=== PATIENT | female | born 1960 | race Caucasian/White ===

== ENCOUNTER 2018-02-01 09:30 | Inpatient (IN) | payer BC ==
[~2018-02-01] VITALS: Ht 162.6 cm; Wt 113.9 kg
[~2018-02-01 09:30] MED LIST: ASCORBIC ACID500 MG PO; FEOSOL325 MG PO; MECLIZINE HCL12.5 MG PO; PROTONIX40 MG/ML PO; TRIAMTERENE-HC1 EAC2 PO
[2018-02-01] MEDS ORDERED: ASPIRIN 81 MG CHEW TAB PO ONE (10:00)
[2018-02-01 10:08] LABS: BASOPHILS # (AUTO) 0.1 (0.0-0.1); BASOPHILS % 0.6 % (0.0-1.0); EOSINOPHILS # (AUTO) 0.1 (0.0-0.4); EOSINOPHILS % 1.2 % (0.0-6.0); HEMATOCRIT 35.1 % (34.2-44.1); HEMOGLOBIN 9.9 g/dL (12.0-16.0); LYMPHOCYTES # (AUTO) 1.3 (1.0-3.2); LYMPHOCYTES % 15.5 % (18.0-39.1); MEAN CORPUSCULAR HEMOGLOBIN 20.3 pg (28-32); MEAN CORPUSCULAR HGB CONC 28.2 g/dL (31-35); MEAN CORPUSCULAR VOLUME 72.1 fL (81-99); MONOCYTES # (AUTO) 0.5 (0.2-0.8); MONOCYTES % 5.5 % (4.4-11.3); NEUTROPHILS # (AUTO) 6.6 (2.1-6.9); NEUTROPHILS % 76.7 % (38.7-80.0); PLATELET COUNT 365 x10e3/uL (140-360); RED BLOOD COUNT 4.87 x10e6/uL (3.6-5.1); RED CELL DISTRIBUTION WIDTH 17.5 % (11.7-14.4)
[2018-02-01 10:26] LABS: ALANINE AMINOTRANSFERASE 26 IU/L (0-55); ALBUMIN 3.7 g/dL (3.5-5.0); ALBUMIN/GLOBULIN RATIO 0.9 (0.8-2.0); ALKALINE PHOSPHATASE 93 IU/L (40-150); ANION GAP 15.9 mmol/L (8-16); BLOOD UREA NITROGEN 11 mg/dL (7-26); BUN/CREATININE RATIO 14 (6-25); CALCIUM 9.2 mg/dL (8.4-10.2); CARBON DIOXIDE 24 mmol/L (22-29); CHLORIDE 103 mmol/L (98-107); CREATINE KINASE 83 IU/L (29-168); CREATININE, SERUM 0.78 mg/dL (0.57-1.11); EST GLOMERULAR FILTRATION RATE > 60 ML/MIN (60-); GLUCOSE 105 mg/dL (74-118); POTASSIUM 3.9 mmol/L (3.5-5.1); SODIUM 139 mmol/L (136-145)
--- NOTE | 2018-02-01 10:30 | Diagnostic Imaging Report ---
PROCEDURE: X-RAY CHEST, TWO VIEWS COMPARISON: None. INDICATIONS: CHEST, JAW, UPPER BACK PAIN FINDINGS: The lungs are well-inflated. No focal airspace consolidation, pleural effusion, or pneumothorax. Convexity along the lower right and left paravertebral regions of the mediastinum likely reflects a hiatal hernia. Otherwise normal cardiomediastinal contour. No acute osseous abnormality. CONCLUSION: No acute cardiopulmonary abnormality. Probable hiatal hernia. Dictated by: Eligio Henson M.D. on 02/01/2018 at 10:39 Electronically approved by: Eligio Henson M.D. on 02/01/2018 at 10:39
[2018-02-01] MEDS ORDERED: NITROGLYCERIN 2% OINT 1 GM PKT TOP ONE (12:00)
[2018-02-01] MEDS ORDERED: HEPARIN 25,000U/0.45% NS 250ML 900 UNIT in SODIUM CHLORIDE 0.9% 250ML 0 ML IV SCH (12:15)
[2018-02-01] MEDS ORDERED: HEPARIN SOD (PORCINE) 5,000 UNIT/ML VIAL IV ONE (12:15)
[2018-02-01 12:17] LABS: INR 0.92; PARTIAL THROMBOPLASTIN TIME 25.8 seconds (23.8-35.5); PROTHROMBIN TIME 13.2 seconds (11.9-14.5)
[2018-02-01] MEDS ORDERED: HEPARIN 25,000U/0.45% NS 250ML 250 ML ONE (12:26)
[2018-02-01] MEDS ORDERED: MORPHINE SULFATE 2 MG/ML SYR IV STA (13:37)
[2018-02-01] MEDS ORDERED: ONDANSETRON HCL INJ 2 MG/ML VIAL IV STA (13:37)
[2018-02-01] MEDS ORDERED: SODIUM CHLORIDE 0.9% 1000ML 1,000 ML IV SCH ×2 (13:45→16:45)
[2018-02-01] MEDS ORDERED: ACETAMINOPHEN 325 MG TAB PO ONE (13:45)
[2018-02-01] MEDS ORDERED: NITROGLYCERIN 0.4 MG SUBL SL PRN (13:45)
[2018-02-01 13:57] LABS: ANISOCYTOSIS MODERATE; HYPOCHROMASIA MODERATE; PLATELET ESTIMATE ADEQUATE; PLATELET MORPHOLOGY COMMENT NORMAL; POIKILOCYTOSIS SLIGHT; RBC MORPHOLOGY COMMENT ABNORMAL
[2018-02-01] MEDS ORDERED: SODIUM CHLORIDE 0.9% 1000ML 1,000 ML IV ONE (16:30)
[2018-02-01] MEDS: NITROGLYCERIN 2% OINT 1 GM PKT TOP SCH (16:52)
[2018-02-01] MEDS: PANTOPRAZOLE 40 MG 10ML VIAL IV SCH (17:00)
[2018-02-01] MEDS: SODIUM CHLORIDE 0.9% 1000ML 1,000 ML IV SCH (19:00)
[2018-02-01 19:12] VITALS: BP 110/60
[2018-02-01 19:14] VITALS: BP 110/60
[2018-02-01 20:00] VITALS: BP 110/60
[2018-02-01 20:21] LABS: INR 0.92; PROTHROMBIN TIME 13.2 seconds (11.9-14.5)
[2018-02-01] MEDS: MORPHINE SULFATE 2 MG/ML SYR IV PRN (21:04)
[2018-02-01] MEDS: ONDANSETRON HCL INJ 2 MG/ML VIAL IV PRN (21:05)
[2018-02-01] MEDS: SIMVASTATIN 40 MG TAB PO SCH (21:31)
[2018-02-01 22:13] VITALS: BP 113/56
--- NOTE | 2018-02-01 22:19 | Diagnostic Imaging Report ---
EXAM: CT Chest WITH contrast 02/01/2018 7:52 PM INDICATION: Evaluation for dissection COMPARISON: None TECHNIQUE: Chest was scanned utilizing a multidetector helical scanner from the lung apex through the level of the adrenal glands with and without administration of IV contrast. Coronal and sagittal reformations were obtained. Dissection protocol was performed. 3-D reformatted images were submitted for interpretation of volume rendering. IV CONTRAST: 100 and mL of Isovue-370 RADIATION DOSE: Total DLP: 1199.19 mGy*cm Estimated effective dose: (DLP x 0.014 x size factor) mSv COMPLICATIONS: None FINDINGS: LINES/ TUBES: None. LUNGS AND AIRWAYS: The lungs are unremarkable. Airways are normal. PLEURA: The pleural spaces are clear. HEART AND MEDIASTINUM: Large left thyroid nodule with central calcification and peripheral enhancement measuring 3 cm in diameter in the inferior pole of the left thyroid. No mediastinal, hilar or axillary lymphadenopathy. The heart is normal in size.. There is no pericardial effusion. There are mild atherosclerotic calcifications in the aorta and coronary arteries. The abdominal aorta is normal in course, caliber, and contour. There is no acute aortic pathology. Scutcher Tender dimensions of the thoracic aorta are as follows: 2.7 cm at the aortic annulus 3.1 cm at the sinuses of Valsalva (the sinotubular junction is preserved) 3.2 cm at the mid ascending aorta 2.8 cm at the distal ascending aorta 2.3 cm at the mid transverse arch 2.4 cm at the proximal descending thoracic aorta 2.1 cm at the diaphragmatic hiatus. UPPER ABDOMEN: Large sliding hiatal hernia with organoaxial rotation within the mediastinum. BONES: The visualized bony thorax is within normal limits. SOFT TISSUES: Unremarkable. IMPRESSION: 1. No evidence of thoracic aortic aneurysm or dissection. 2. Large sliding hiatal hernia with organoaxial rotation within the mediastinum. These findings can be seen on patients with gastric volvulus. However, no evidence of perigastric fat stranding present. Scratch that 3. Diffuse hepatic steatosis. 4. Left thyroid enhancing and partially calcified nodule Signed by: Dr. Abundio Begum M.D. on 02/01/2018 10:16 PM
[2018-02-01 22:30] VITALS: BP 113/56
--- NOTE | 2018-02-01 23:16 | Consultation ---
DATE OF CONSULTATION: February 01, 2018 CARDIOLOGY CONSULTATION REQUESTING PHYSICIAN: Dr. Bonilla REASON FOR CONSULTATION: Chest pain. HISTORY OF PRESENT ILLNESS: This is a 57-year-old woman with history of borderline hyperlipidemia, as well as Meniere's, who presents with complaint of chest pain. The patient denied any history of heart disease. She states she has been feeling more fatigued than usual for the last few weeks and noted lower extremity swelling on Thursday. On Thursday, she went to her primary care provider due to these complaints and was noted to be hypertensive to 160/100. She was started on an unknown antihypertensive medication and was doing well until this morning, when she developed central chest pressure radiating to the back and bilateral jaw, right worse than left. She described the pain as 6/10 in severity at onset. This was associated with shortness of breath, nausea, and diaphoresis. The pain comes intermittently lasting approximately 3-4 minutes at a time. She went into work, but eventually the pain became so severe. EMS was called. The patient presented to [facility] ER for further evaluation. In the ER, she was given a nitroglycerin patch with some improvement in her symptoms. REVIEW OF SYSTEMS: Negative except as per HPI. PAST MEDICAL HISTORY: 1. Borderline hypertension. 2. Meniere's. PAST SURGICAL HISTORY: Endometrial ablation. ALLERGIES: CODEINE. MEDICATIONS: Please see medication list. SOCIAL HISTORY: Denies tobacco or illicit drugs, but does drink alcohol socially. PHYSICAL EXAM VITAL SIGNS: Temperature 97.9 degrees, pulse 66, respiratory rate 18, blood pressure 102/67, oxygen saturation 98% on 2 L nasal cannula. GENERAL: A well-developed, well-nourished woman, obese, no acute distress. HEENT: Normocephalic, atraumatic. Pupils are equal. No scleral icterus. NECK: Supple. No thyromegaly or cervical lymphadenopathy. No carotid bruits. LUNGS: Clear to auscultation bilaterally. No wheezes or crackles. CARDIOVASCULAR: Normal rate, regular rhythm. Soft 1/6 systolic murmur. It was noted at the upper sternal border. Normal S1, S2. ABDOMEN: Soft, nontender. EXTREMITIES: No edema. NEURO: Nonfocal exam. LABS: WBC 8.54, hemoglobin 9.9, hematocrit 35.1, platelets 365,000. Sodium 139, potassium 3.9, chloride 103, CO2 24, BUN 11, creatinine 0.78. Troponin less than 0.001. BNP 22. D-dimer 0.88. EKG, normal sinus rhythm, right bundle-branch block. IMPRESSIONS 1. Chest pain. 2. Hyperlipidemia. RECOMMENDATIONS: Trend cardiac enzymes to rule out myocardial infarction. Obtain echocardiogram. Given radiation to the back, will obtain CTA of the chest to evaluate for dissection, as well as pulmonary embolism. If patient rules out for myocardial infarction, we will proceed with nuclear stress test in the morning. Otherwise, patient will need further evaluation with cardiac catheterization. Check lipid panel in a.m. Thank you for this consult. We will continue to follow. Job#: [id number] CQ
[2018-02-02] MEDS: NITROGLYCERIN 2% OINT 1 GM PKT TOP SCH ×4 (00:55→18:00)
[2018-02-02 04:00] VITALS: BP 108/53
[2018-02-02] MEDS ORDERED: SODIUM CHLORIDE 0.9% 100 ML 100 ML ONE (04:00)
[2018-02-02] MEDS ORDERED: IOPAMIDOL 370 MG/ML 200 ML INFUS..BTL INJ ONE (04:00)
[2018-02-02 04:17] LABS: CREATINE KINASE 73 IU/L (29-168)
[2018-02-02] MEDS: SODIUM CHLORIDE 0.9% 1000ML 1,000 ML IV SCH ×2 (05:00→14:00)
[2018-02-02] MEDS: MORPHINE SULFATE 2 MG/ML SYR IV PRN ×3 (06:20→22:53)
[2018-02-02] MEDS: ONDANSETRON HCL INJ 2 MG/ML VIAL IV PRN ×3 (06:20→22:53)
[2018-02-02 06:47] LABS: BASOPHILS % 0.4 % (0.0-1.0); EOSINOPHILS # (AUTO) 0.1 (0.0-0.4); EOSINOPHILS % 1.5 % (0.0-6.0); HEMATOCRIT 28.6 % (34.2-44.1); HEMOGLOBIN 7.9 g/dL (12.0-16.0); LYMPHOCYTES # (AUTO) 1.3 (1.0-3.2); LYMPHOCYTES % 25.5 % (18.0-39.1); MEAN CORPUSCULAR HEMOGLOBIN 20.4 pg (28-32); MEAN CORPUSCULAR HGB CONC 27.6 g/dL (31-35); MEAN CORPUSCULAR VOLUME 73.9 fL (81-99); MONOCYTES # (AUTO) 0.4 (0.2-0.8); MONOCYTES % 8.2 % (4.4-11.3); NEUTROPHILS # (AUTO) 3.4 (2.1-6.9); NEUTROPHILS % 64.2 % (38.7-80.0); PLATELET COUNT 302 x10e3/uL (140-360); RED BLOOD COUNT 3.87 x10e6/uL (3.6-5.1); RED CELL DISTRIBUTION WIDTH 17.7 % (11.7-14.4)
[2018-02-02 06:59] LABS: ANION GAP 13.1 mmol/L (8-16); BLOOD UREA NITROGEN 12 mg/dL (7-26); BUN/CREATININE RATIO 16 (6-25); CALCIUM 8.4 mg/dL (8.4-10.2); CARBON DIOXIDE 23 mmol/L (22-29); CHLORIDE 107 mmol/L (98-107); CHOL/HDL RATIO 3.7 (3.0-3.6); CHOLESTEROL 167 MD/DL (0-199); CREATININE, SERUM 0.74 mg/dL (0.57-1.11); EST GLOMERULAR FILTRATION RATE > 60 ML/MIN (60-); GLUCOSE 117 mg/dL (74-118); HDL CHOLESTEROL 45 MG/DL (40-60); LDL CHOLESTEROL 94 MG/DL (60-130); POTASSIUM 4.1 mmol/L (3.5-5.1); SODIUM 139 mmol/L (136-145); TRIGLYCERIDES 140 MG/DL (0-149)
[2018-02-02 07:08] LABS: MAGNESIUM 2.1 MG/DL (1.3-2.1); PHOSPHORUS 3.9 MG/DL (2.3-4.7)
[2018-02-02 08:10] VITALS: BP 98/47
[2018-02-02] MEDS ORDERED: LISINOPRIL 10 MG TAB PO SCH (09:00)
[2018-02-02] MEDS: HEPARIN 25,000U/0.45% NS 250ML 900 UNIT in SODIUM CHLORIDE 0.9% 250ML 0 ML IV SCH (09:15)
[2018-02-02 10:00] VITALS: BP 98/47
[2018-02-02] MEDS: PANTOPRAZOLE 40 MG 10ML VIAL IV SCH ×2 (10:02→17:30)
[2018-02-02 10:06] LABS: ANISOCYTOSIS SLIGHT; HYPOCHROMASIA SLIGHT; MICROCYTOSIS SLIGHT; PLATELET ESTIMATE ADEQUATE; PLATELET MORPHOLOGY COMMENT NORMAL; RBC MORPHOLOGY COMMENT NORMAL
[2018-02-02 11:07] LABS: CREATINE KINASE 70 IU/L (29-168)
[2018-02-02] MEDS ORDERED: REGADENOSON 0.4 MG/5 ML SYR IV ONE (11:45)
[2018-02-02] MEDS ORDERED: SODIUM CHLORIDE 0.9% 250ML 250 ML IV ONE (12:45)
--- NOTE | 2018-02-02 12:48 | Progress Note ---
DATE: February 02, 2018 CARDIOLOGY PROGRESS NOTE: SUBJECTIVE: Ms. Avendaño had some minimal pain overnight. OBJECTIVE: VITAL SIGNS: Afebrile. Heart rate 80. Blood pressure 98/47. CARDIOVASCULAR: Regular rhythm. No murmurs or gallops. LUNGS: Clear to auscultation bilaterally. Hemoglobin is 7.9 with iron deficiency anemia. Serum creatinine is normal. Cardiac enzymes are negative. Lexiscan nuclear stress test was performed. The patient had marked ST elevation in the inferior leads with reciprocal changes consistent with myocardial injury. ASSESSMENT: 1. Symptomatic anemia. 2. Chest pain. PLAN: We will review imaging on her nuclear stress test. However, her EKG changes are consistent with either coronary spasm or significant right coronary artery stenosis. She will require an anemia workup for her severe anemia prior to any undertaking coronary angiography. GI consultation is recommended with CT scan of the abdomen and pelvis. I thank Dr. Bonilla for this consultation. Job#: [id number] TIANNA
[2018-02-02] MEDS: ASPIRIN 81 MG ENTERIC COATED PO SCH (13:28)
[2018-02-02] MEDS: LISINOPRIL 20 MG TAB PO SCH (13:28)
[2018-02-02] MEDS ORDERED: FUROSEMIDE INJ 10 MG/ML 2 ML VIAL IV NR (14:00)
--- OUTSIDE RECORDS SUMMARY | 2018-02-02 14:18 | XMS REPORT | Encounter Summary ---
Author Organization Unknown Address [address] [place] [address] Phone [phone] Care Team Providers Care Shochet Name Role Phone Aravind Fuentes MD 3 [phone] Reason for Visit Medical Complaint Instructions 1. Upper respiratory infection upper respiratory infection (cold): care instructions benzonatate 200 mg capsule 2. Acute pharyngitis sore throat: care instructions rapid strep group A, throat 3. Exposure to streptococcal pharyngitis amoxicillin 875 mg tablet 4. Otalgia earache: care instructions Discussion Note Pt is in NAD; Verbalizes understanding of all instructions with no questions at this time. Plan of Care Patient Instructions Take fluticasone as needed for congestion. Bayard one spray in each nostril twice a day. Take a warm, steamy shower, blow your nose thereafter, and spray in each nostril. Tilt your head up for about 10 seconds and breath through your mouth. Do not sniff or snort the medication in or else the medication will go to your throat and not be absorbed appropriately. Start xyzal over the counter for runny nose and post nasal drainage. Gargle and viscous lidocaine as needed for sore throat as directed. Take benzonatate for cough as directed. Alternate with Ibuprofen and acetaminophen every 4hrs as needed for pain. Proper hydration and rest. Take antibiotics with food and recommend start a probiotic to avoid GI discomfort. Do not share any utensils/cups, no kissing and change toothbrush after 48 hrs of antibiotic use. Take medications as prescribed. Return to clinic or follow up with your PCP within 2-3 days if symptoms worsen as discussed. Reminders Provider Appointments None recorded. Lab Rapid Strep Group a, Throat 12/19/2016 [facility] Referral None recorded. Procedures None recorded. Surgeries None recorded. Imaging None recorded. Medications Name Start Date amoxicillin 875 mg tablet Take 1 tablet every 12 hours by oral route as directed for 10 days. benzonatate 200 mg capsule Take 1 capsule 3 times a day by oral route. citalopram 20 mg tablet TAKE ONE (1) TABLET(S) BY MOUTH ONCE A DAY. meclizine 25 mg tablet pantoprazole 40 mg tablet,delayed release TAKE ONE (1) TABLET(S) BY MOUTH TWICE A DAY. simvastatin 20 mg tablet triamterene 37.5 mg-hydrochlorothiazide 25 mg capsule TAKE ONE (1) CAPSULE(S) BY MOUTH ONCE A DAY IN THE MORNING. Medications Administered None recorded. Vitals Height Weight BMI Blood Pressure 5 ft 4 in 220 lbs 37.8 kg/m2 120/80 mm[Hg] Lab Results Date Name Specimen Result Interpretation Description Value Range Status Address Rapid Strep Group a, Throat Result negative [facility]: [address] [place] [address] Swab Location Left and Right tonsillar pillars [facility]: [address] [place] [address] Allergies Code Code System Name Reaction Severity Status Onset 2670 RxNorm Codeine Vomiting Severe Active Problems None recorded. Procedures None recorded. Vaccine List None recorded. 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 History of Present Illness [id number] Reported By: Patient HPI: Duration: 1 days. Context: no tick/insect bites, no recent travel, no new medications, ill contacts. Associated Symptoms: no fever/chills, no headache, no muscle aches, no rash, no lethargy, cough; sore throat, chest congestion, and bilateral earache. Modifying Factors nothing gives relief Review of Systems:ROS as noted in the HPI Review of Systems Basic Reported By: Patient Physical Exam Adult Basic, Adult Female Complete Reported By: Patient Constitutional: General Appearance: healthy-appearing, well-nourished, well-developed. Level of Distress: NAD. Ambulation: ambulating normally Psychiatric: Mental Status: active and alert. Orientation: to time, to place, to person Eyes: Lids and Conjunctivae: non-injected, no discharge, no pallor Lyy-Eejf-Iuxtc-Throat: Ears: no lesions on external ear, no outer ear tenderness, EACs clear, TMs clear. Hearing: no hearing loss. Nose: no lesions on external nose, nares patent, no septal deviation, nasal passages clear, no sinus tenderness, nasal discharge--rhinorrhea, post nasal drip. Lips, Teeth, and Gums: no mouth or lip ulcers, no bleeding gums, normal dentition. Oropharynx: moist mucous membranes, no exudates, tonsils not enlarged, erythema Neck: Lymph Nodes: no cervical LAD Lungs: Respiratory effort: no dyspnea, no tachypnea, no use of accessory muscles, no intercostal retractions. Auscultation: breath sounds normal Cardiovascular: Heart Auscultation: RRR, no murmurs Neurologic: Gait and Station: normal gait, normal station
--- OUTSIDE RECORDS SUMMARY | 2018-02-02 14:18 | XMS REPORT | Encounter Summary ---
Author Organization Unknown Address [address] [place] [address] Phone [phone] Care Team Providers Care Ui Application Developer Name Role Phone Aravind Fuentes MD 3 [phone] Reason for Visit Medical Complaint Instructions 1. Shoulder joint pain methocarbamol 750 mg tablet ibuprofen 800 mg tablet prednisone 10 mg tablet Depo-Medrol 80 mg/mL suspension for injection Discussion Note Pt is in NAD; Verbalizes understanding of all instructions with no questions at this time. Patient educational handouts: No information available. Plan of Care Patient Instructions Recommend RICE therapy: rest, ice and heat, compression, and elevation. Recommend arm sling. Take medications as prescribed. Return to clinic or follow up with your PCP within 2-3 days if symptoms worsen as discussed. Reminders Provider Appointments None recorded. Lab None recorded. Referral None recorded. Procedures None recorded. Surgeries None recorded. Imaging None recorded. Medications Name Start Date citalopram 20 mg tablet TAKE ONE (1) TABLET(S) BY MOUTH ONCE A DAY. Depo-Medrol 80 mg/mL suspension for injection 80 mg/mL IM injectable x 1 Estrace 0.01% (0.1 mg/gram) vaginal cream ferrous sulfate 325 mg (65 mg iron) tablet TAKE ONE (1) TABLET(S) BY MOUTH THREE TIMES A DAY WITH MEALS. ibuprofen 800 mg tablet Take 1 tablet 3 times a day by oral route as needed for 3 days. ketoconazole 2 % topical cream meclizine 25 mg tablet methocarbamol 750 mg tablet Take 2 tablets twice a day by oral route as needed for 3 days. pantoprazole 40 mg tablet,delayed release TAKE ONE (1) TABLET(S) BY MOUTH TWICE A DAY. prednisone 10 mg tablet take 40 mg PO QD X 2 days, then take 20 mg PO QD x 2 days, then take 10 mg PO QD X 2 days. simvastatin 20 mg tablet simvastatin 40 mg tablet TAKE ONE (1) TABLET(S) BY MOUTH ONCE A DAY IN THE EVENING. triamterene 37.5 mg-hydrochlorothiazide 25 mg capsule TAKE ONE (1) CAPSULE(S) BY MOUTH ONCE A DAY IN THE MORNING. Vitamin C 500 mg tablet TAKE ONE (1) TABLET(S) BY MOUTH TWICE A DAY. Medications Administered Name Date Depo-Medrol 80 mg/mL suspension for injection 80 mg/mL IM injectable x 1 [id number] Vitals Height Weight BMI Blood Pressure 5 ft 4 in 220 lbs 37.8 130/84 Lab Results None recorded. Allergies Code Code System Name Reaction Severity Onset 72561 RxNorm Pholcodine Abdominal Pain Moderate Problems None recorded. Procedures None recorded. Vaccine List None recorded. Social History Smoking Status Never Smoker Past Encounters 08/04/2016 Shoulder Joint Pain Ayesha Leal, MAINTENANCE PORTER-C: [address] [facility], [place] [address], Ph. History of Present Illness Musculoskeletal Complaint Reported By: Patient HPI: Location: pain is not radiating. Quality: sharp, deep, constant; spasm. Severity: moderate (5-7), pain level 7/10; one week. Duration: constant. Onset/Timing: acute, gradual. 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 Alleviating factors: nothing helps. Aggravating factors: lifting, carrying, movement/positioning. Associated Symptoms: no fever/chills, no warmth, no redness, no swelling, no drainage, no ecchymosis, no weakness, no tingling, no numbness, no radiation, no catching/locking, no popping/clicking, no buckling, no grinding, no instability, no weight loss, no change in bowel/bladder habits, no headache, muscle aches; spasm/cramp Review of Systems:ROS as noted in the HPI Review of Systems Basic Reported By: Patient Physical Exam Adult Basic, Adult Female Complete, Adult Male Complete Reported By: Patient Constitutional: General Appearance: healthy-appearing, well-nourished, well-developed. Level of Distress: NAD. Ambulation: ambulating normally Psychiatric: Mental Status: active and alert. Orientation: to time, to place, to person Neck: Neck: supple, trachea midline, no masses; Limited ROM to the left. Lymph Nodes: no cervical LAD Lungs: Respiratory effort: no dyspnea, no tachypnea, no use of accessory muscles, no intercostal retractions. Auscultation: breath sounds normal, good air movement Cardiovascular: Heart Auscultation: RRR, no murmurs. Pulses including femoral / pedal: normal throughout Musculoskeletal:: Motor Strength and Tone: normal motor strength, normal tone, normal. Joints, Bones, and Muscles: no bony abnormalities, no contractures, no malalignment, limited ROM, tenderness. Extremities: no cyanosis, no edema, no varicosities, no palpable cord Neurologic: Gait and Station: normal gait, normal station. Cranial Nerves: grossly intact. Sensation: grossly intact. Reflexes: DTRs 2+ bilaterally throughout Back: Thoracolumbar Appearance: normal curvature
--- OUTSIDE RECORDS SUMMARY | 2018-02-02 14:18 | XMS REPORT | Continuity of Care Document ---
Author [facility] Unknown Phone Unavailable Problems Problem Status Onset Date Classification Date Reported Comments Source Upper respiratory infection 12/19/2016 Diagnosis 12/19/2016 [facility] Acute pharyngitis 12/19/2016 Diagnosis 12/19/2016 [facility] Exposure to streptococcal pharyngitis 12/19/2016 Diagnosis 12/19/2016 [facility] Otalgia 12/19/2016 Diagnosis 12/19/2016 [facility] Shoulder joint pain 08/04/2016 Diagnosis 08/04/2016 [facility] Medications Medication Details Route Status Patient Instructions Ordering Provider Order Date Source Amoxicillin 875 MG Oral Tablet amoxicillin 875 mg tablet Take 1 tablet every 12 hours by oral route as directed for 10 days. Active [facility] benzonatate 200 MG Oral Capsule benzonatate 200 mg capsule Take 1 capsule 3 times a day by oral route. Active [facility] Citalopram 20 MG Oral Tablet citalopram 20 mg tablet TAKE ONE (1) TABLET(S) BY MOUTH ONCE A DAY. Active [facility] Meclizine Hydrochloride 25 MG Oral Tablet meclizine 25 mg tablet Active [facility] pantoprazole 40 MG Delayed Release Oral Tablet pantoprazole 40 mg tablet,delayed release TAKE ONE (1) TABLET(S) BY MOUTH TWICE A DAY. Active [facility] Simvastatin 20 MG Oral Tablet simvastatin 20 mg tablet Active [facility] Hydrochlorothiazide 25 MG / Triamterene 37.5 MG Oral Capsule triamterene 37.5 mg-hydrochlorothiazide 25 mg capsule TAKE ONE (1) CAPSULE(S) BY MOUTH ONCE A DAY IN THE MORNING. Active [facility] 1 ML methylprednisolone acetate 80 MG/ML Injection [Depo-Medrol] Depo-Medrol 80 mg/mL suspension for injection 80 mg/mL IM injectable x 1 Active [facility] Estradiol 0.1 MG/ML Vaginal Cream [Estrace] Estrace 0.01% (0.1 mg/gram) vaginal cream Active [facility] ferrous sulfate 325 MG Oral Tablet ferrous sulfate 325 mg (65 mg iron) tablet TAKE ONE (1) TABLET(S) BY MOUTH THREE TIMES A DAY WITH MEALS. Active [facility] Ibuprofen 800 MG Oral Tablet ibuprofen 800 mg tablet Take 1 tablet 3 times a day by oral route as needed for 3 days. Active [facility] Ketoconazole 20 MG/ML Topical Cream ketoconazole 2 % topical cream Active [facility] Methocarbamol 750 MG Oral Tablet methocarbamol 750 mg tablet Take 2 tablets twice a day by oral route as needed for 3 days. Active [facility] Prednisone 10 MG Oral Tablet prednisone 10 mg tablet take 40 mg PO QD X 2 days, then take 20 mg PO QD x 2 days, then take 10 mg PO QD X 2 days. Active [facility] Simvastatin 40 MG Oral Tablet simvastatin 40 mg tablet TAKE ONE (1) TABLET(S) BY MOUTH ONCE A DAY IN THE EVENING. Active [facility] Calcium ascorbate 500 MG Oral Tablet Vitamin C 500 mg tablet TAKE ONE (1) TABLET(S) BY MOUTH TWICE A DAY. Active [facility] Allergies, Adverse Reactions, Alerts Substance Category Reaction Severity Reaction type Status Date Reported Comments Source Pholcodine Abdominal pain Moderate Allergy to substance 08/04/2016 [facility] Codeine Vomiting Severe Allergy to substance 12/19/2016 [facility] Immunizations Immunization Date Given Site Status Last Updated Comments Source Results Order Name Results Value Reference Range Date Interpretation Comments Source RESULT negative 12/19/2016 [facility] SWAB LOCATION Left and Right tonsillar pillars 12/19/2016 [facility] Vital Signs Vital Sign Value Date Comments Source Diastolic (mm Hg) 80 12/19/2016 [facility] Height 64 12/19/2016 [facility] Systolic (mm Hg) 120 12/19/2016 [facility] Weight 220 12/19/2016 [facility] Diastolic (mm Hg) 84 08/04/2016 [facility] Height 64 08/04/2016 [facility] Systolic (mm Hg) 130 08/04/2016 [facility] Weight 220 08/04/2016 [facility] Encounters Location Location Details Encounter Type Encounter Number Reason For Visit Attending Provider ADM Date DC Date Status Source [place] - [facility] - [id number] BañuelosC: [address] [place] [address], Ph. [id number] Ayesha Leal 08/04/2016 [facility] [place] - [facility] - [id number] Leal, [facility]-C: [address] [place] [address], [place] [address], Ph. [id number] Ayesha Leal 12/19/2016 [facility] Procedures Procedure Code Date Perfomer Comments Source
--- OUTSIDE RECORDS SUMMARY | 2018-02-02 14:23 | XMS REPORT ---
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 Allergies, Adverse Reactions, Alerts This patient has no known allergies or adverse reactions. Medications This patient has no known medications. Results Test Description Test Time Test Comments Text Results Atomic Results Result Comments CTA CHEST 2018-02-01 21:19:00 [place] [address] Patient Name: LAURA MITCHELL MR #: [id number] : 1960 Age/Sex: 57/F Req #: [id number] Adm Physician: HECTOR CEDILLO MD Ordered by: ION EVANS MD Report #: [id number] Location: MED/SURG Room/Bed: [facility] Procedure: [id number] CT/CTA CHEST Exam Date: Exam Time: REPORT STATUS: Signed EXAM: CT Chest WITH contrast 02/01/2018 7:52 PM INDICATION: Evaluation for dissection COMPARISON: None TECHNIQUE: Chest was scanned utilizing a multidetector helical scanner from the lung apex through the level of the adrenal glands with and without administration of IV contrast. Coronal and sagittal reformations were obtained. Dissection protocol was performed. 3- D reformatted images were submitted for interpretation of volume rendering. IV CONTRAST: 100 and mL of Isovue-370 RADIATION DOSE: Total DLP: 1199.19 mGy*cm Estimated effective dose: (DLP x 0.014 x size factor) mSv COMPLICATIONS: None FINDINGS: LINES/ TUBES: None. LUNGS AND AIRWAYS: The lungs are unremarkable. Airways are normal. PLEURA: The pleural spaces are clear. HEART AND MEDIASTINUM: Large left thyroid nodule with central calcification and peripheral enhancement measuring 3 cm in diameter in the inferior pole of the left thyroid. No mediastinal, hilar or axillary lymphadenopathy. The heart is normal in size.. There is no pericardial effusion. There are mild atherosclerotic calcifications in the aorta and coronary arteries. The abdominal aorta is normal in course, caliber, and contour. There is no acute aortic pathology. Upkeep Mechanic dimensions of the thoracic aorta are as follows: 2.7 cm at the aortic annulus 3.1 cm at the sinuses of Valsalva (the sinotubular junction is preserved) 3.2 cm at the mid ascending aorta 2.8 cm at the distal ascending aorta 2.3 cm at the mid transverse arch 2.4 cm at the proximal descending thoracic aorta 2.1 cm at the diaphragmatic hiatus. UPPER ABDOMEN: Large sliding hiatal hernia with organoaxial rotation within the mediastinum. BONES: The visualized bony thorax is within normal limits. SOFT TISSUES: Unremarkable. IMPRESSION: 1. No evidence of thoracic aortic aneurysm or dissection. 2. Large sliding hiatal hernia with organoaxial rotation within the mediastinum. These findings can be seen on patients with gastric volvulus. However, no evidence of perigastric fat stranding present. Scratch that 3. Diffuse hepatic steatosis. 4. Left thyroid enhancing and partially calcified nodule Signed by: Dr. Abundio Begum M.D. on 02/01/2018 10:16 PM Dictated By: ABUNDIO REYNOLDS MD 15 Transcribed By: FAM on 02/01/182215 COPY TO: ION EVANS MD CHEST 2 VIEWS 2018-02-01 10:39:00 [place] [address] Patient Name: LAURA MITCHELL MR #: [id number] : 1960 Age/Sex: 57/F Req #: [id number] Adm Physician: Ordered by: TILA AREVALO MD Report #: [id number] Location: ER Room/Bed: Procedure: [id number] DX/CHEST 2 VIEWS Exam Date: 02/01/18 Exam Time: 1010 REPORT STATUS: Signed PROCEDURE: X-RAY CHEST, TWO VIEWS COMPARISON: None. INDICATIONS: CHEST, JAW, UPPER BACK PAIN FINDINGS: The lungs are well-inflated. No focal airspace consolidation, pleural effusion, or pneumothorax. Convexity along the lower right and left paravertebral regions of the mediastinum likely reflects a hiatal hernia. Otherwise normal cardiomediastinal contour. No acute osseous abnormality. CONCLUSION: No acute cardiopulmonary abnormality. Probable hiatal hernia. Dictated by: Brennen Smith M.D. on 02/01/2018 at 10:39 Electronically approved by: Brennen Smith M.D. on 02/01/2018 at 10:39 Dictated By: BRENNEN SMITH MD 1039 Transcribed By: KENN on 02/01/18 1039 COPY TO: TILA AREVALO MD
--- NOTE | 2018-02-02 15:02 | Cardiology Report ---
DATE OF STUDY: February 02, 2018 LEXISCAN NUCLEAR STRESS TEST INDICATIONS: Coronary artery disease with unstable angina. PROCEDURE: The patient was stressed using 1-minute intravenous infusion of Lexiscan. Rest and stress Myoview imaging was obtained. Resting heart rate is 72 beats per minute, and resting blood pressure is 148/70. Rest imaging is normal. Stress imaging shows marked decrease in tracer uptake in the inferior and posterior regions of the left ventricle. LV systolic function is 71%. CONCLUSIONS 1. Abnormal Lexiscan nuclear stress test showing a large area of inferior ischemia. 2. LV ejection fraction is normal. Job#: [id number]
[2018-02-02 16:42] VITALS: BP 99/55
[2018-02-02] MEDS ORDERED: SODIUM CHLORIDE 0.9% 250ML 250 ML ONE (19:36)
[2018-02-02 20:00] VITALS: BP 108/51
[2018-02-02 20:48] LABS: FERRITIN 8.12 ng/mL (4.63-204.00)
[2018-02-02] MEDS: SIMVASTATIN 40 MG TAB PO SCH (21:07)
[2018-02-02 21:11] LABS: FOLATE 9.8 ng/mL (7.0-15.4)
[2018-02-03] VITALS (8 sets, daily range): BP systolic 100–177; BP diastolic 52–82
[2018-02-03] MEDS: SODIUM CHLORIDE 0.9% 1000ML 1,000 ML IV SCH ×3 (00:33→20:00)
[2018-02-03 05:37] LABS: BASOPHILS % 0.4 % (0.0-1.0); EOSINOPHILS # (AUTO) 0.1 (0.0-0.4); EOSINOPHILS % 2.4 % (0.0-6.0); HEMATOCRIT 31.5 % (34.2-44.1); HEMOGLOBIN 8.9 g/dL (12.0-16.0); LYMPHOCYTES # (AUTO) 1.3 (1.0-3.2); LYMPHOCYTES % 29.8 % (18.0-39.1); MEAN CORPUSCULAR HEMOGLOBIN 21.3 pg (28-32); MEAN CORPUSCULAR HGB CONC 28.3 g/dL (31-35); MEAN CORPUSCULAR VOLUME 75.5 fL (81-99); MONOCYTES # (AUTO) 0.3 (0.2-0.8); MONOCYTES % 7.3 % (4.4-11.3); NEUTROPHILS # (AUTO) 2.7 (2.1-6.9); NEUTROPHILS % 59.9 % (38.7-80.0); PLATELET COUNT 258 x10e3/uL (140-360); RED BLOOD COUNT 4.17 x10e6/uL (3.6-5.1); RED CELL DISTRIBUTION WIDTH 17.4 % (11.7-14.4)
[2018-02-03 05:55] LABS: % IRON SATURATION 90 % (15-50); BLOOD UREA NITROGEN 13 mg/dL (7-26); BUN/CREATININE RATIO 20 (6-25); CALCIUM 8.2 mg/dL (8.4-10.2); CARBON DIOXIDE 23 mmol/L (22-29); CHLORIDE 107 mmol/L (98-107); CREATININE, SERUM 0.65 mg/dL (0.57-1.11); EST GLOMERULAR FILTRATION RATE > 60 ML/MIN (60-); GLUCOSE 99 mg/dL (74-118); IRON 370 ug/dL (50-170); MAGNESIUM 2.1 MG/DL (1.3-2.1); SODIUM 138 mmol/L (136-145); TOTAL IRON BINDING CAPACITY 412 ug/dL (261-478); TRANSFERRIN 294 mg/dL (180-382)
[2018-02-03 06:18] LABS: FERRITIN 8.52 ng/mL (4.63-204.00)
[2018-02-03] MEDS: NITROGLYCERIN 2% OINT 1 GM PKT TOP SCH ×4 (06:24→17:51)
[2018-02-03 06:32] LABS: FOLATE 8.7 ng/mL (7.0-15.4)
[2018-02-03] MEDS: FERROUS SULFATE 325 MG TAB PO SCH ×2 (08:00→17:51)
[2018-02-03] MEDS: ASCORBIC ACID 500 MG TAB PO SCH ×2 (09:00→17:51)
[2018-02-03] MEDS: ASPIRIN 81 MG ENTERIC COATED PO SCH (09:00)
[2018-02-03] MEDS: OYST-CAL-D 500MG TABLET PO SCH ×2 (09:00→17:51)
[2018-02-03] MEDS: PANTOPRAZOLE 40 MG 10ML VIAL IV SCH ×2 (09:00→17:51)
[2018-02-03] MEDS: HEPARIN 25,000U/0.45% NS 250ML 900 UNIT in SODIUM CHLORIDE 0.9% 250ML 0 ML IV SCH (09:15)
[2018-02-03 10:54] LABS: ANISOCYTOSIS MODERATE; HYPOCHROMASIA MODERATE; MICROCYTOSIS MODERATE; OVALOCYTES FEW; PLATELET ESTIMATE ADEQUATE; PLATELET MORPHOLOGY COMMENT NORMAL; RBC MORPHOLOGY COMMENT ABNORMAL
[2018-02-03] MEDS: LISINOPRIL 20 MG TAB PO SCH (10:55)
[2018-02-03] MEDS: MORPHINE SULFATE 2 MG/ML SYR IV PRN (10:55)
[2018-02-03 12:55] LABS: CLARITY,URINE CLEAR (CLEAR); COLOR,URINE YELLOW (YELLOW); KETONES,URINE NEGATIVE (NEGATIVE); LEUKOCYTE ESTERASE ,URINE NEGATIVE (NEGATIVE); NITRITE,URINE NEGATIVE (NEGATIVE); PROTEIN,URINE DIPSTICK NEGATIVE (NEGATIVE); URINE UROBILINOGEN 0.2 mg/dL (0.2 - 1)
[2018-02-03 12:56] LABS: BILIRUBIN,URINE NEGATIVE (NEGATIVE)
[2018-02-03 12:58] LABS: BACTERIA,URINE FEW /HPF; EPITHELIAL CELLS,URINE FEW /LPF; RBC,URINE 0-5 /HPF (0-5)
[2018-02-03 12:59] LABS: MUCUS,URINE FEW (RARE)
--- NOTE | 2018-02-03 13:42 | Progress Note ---
DATE: February 03, 2018 CARDIOLOGY PROGRESS NOTE SUBJECTIVE: No major events overnight. Had an episode of chest pain last night relieved with morphine. Also received 2 units of packed red blood cells last night. Feels well. Only complains about a headache this morning due to her nitroglycerin patch which is treated with Tylenol. OBJECTIVE VITAL SIGNS: Temperature 97.4, pulse 80, respiratory rate 18, blood pressure 132/64, satting 96% on room air. GENERAL: Obese white female in no acute distress. CARDIOVASCULAR: Regular rate and rhythm. No murmurs, rubs or gallops. Palpable carotid pulses. Palpable radial pulses. EXTREMITIES: No lower extremity edema or varicosities or ulcers. LUNGS: Clear to auscultation bilaterally. ABDOMEN: Soft, nontender, nondistended. No masses. NEURO AND PSYCH: Alert and oriented to person, place, and time. Normal affect. CARDIAC MEDICATIONS: Reviewed. IMAGING DATA: Reviewed. Specifically, her stress test showed a large area of inferior ischemia. TELEMETRY DATA: Reviewed. Shows normal sinus rhythm. LABORATORY DATA: Reviewed. ASSESSMENT AND PLAN 1. Unstable angina. 2. Iron deficiency anemia with history of peptic ulcer disease. 3. Hypertension. 4. Hyperlipidemia. PLAN: Patient needs coronary angiogram, possible PCI, given her stress test findings with inferior ischemia. However, given her iron deficiency anemia requiring blood transfusion as well as history of peptic ulcer disease, she will undergo a GI evaluation first before she is cleared for dual antiplatelet therapy, which would be required if she were to receive any PCI. I discussed this this morning with the GI physician, Dr. Shah, and he plans to do as an EGD today. Will plan for cardiac catheterization once the patient is cleared for dual antiplatelet therapy from a GI standpoint. Continue her optimal medical therapy for now from a cardiovascular standpoint. As far as risk of cardiovascular events during her EGD, the patient will be considered moderate risk for this low-risk procedure given recent stress test findings, though she has no unstable symptoms at this time and did not have acute myocardial infarction. Thank you for this consult. Will continue to follow closely. Job#: [id number]
[2018-02-03] MEDS ORDERED: PEG (High)/E-LYTE SOLN 4,000 ML BTL PO ONE (17:00)
[2018-02-03] MEDS ORDERED: PROPOFOL IV EMULSION 10 MG/ML 50 ML VIAL ONE (17:19)
[2018-02-03] MEDS: ONDANSETRON HCL INJ 2 MG/ML VIAL IV PRN (22:30)
[2018-02-03] MEDS: SIMVASTATIN 40 MG TAB PO SCH (22:30)
[2018-02-04] VITALS: BP 158/59
[2018-02-04] MEDS: NITROGLYCERIN 2% OINT 1 GM PKT TOP SCH ×3 (01:00→12:00)
[2018-02-04 04:00] VITALS: BP 98/53
[2018-02-04] MEDS: MORPHINE SULFATE 2 MG/ML SYR IV PRN (04:20)
[2018-02-04 05:30] LABS: BASOPHILS % 0.6 % (0.0-1.0); EOSINOPHILS # (AUTO) 0.1 (0.0-0.4); HEMATOCRIT 32.1 % (34.2-44.1); HEMOGLOBIN 9.1 g/dL (12.0-16.0); LYMPHOCYTES # (AUTO) 1.1 (1.0-3.2); LYMPHOCYTES % 23.2 % (18.0-39.1); MEAN CORPUSCULAR HGB CONC 28.3 g/dL (31-35); MEAN CORPUSCULAR VOLUME 74.1 fL (81-99); MONOCYTES # (AUTO) 0.3 (0.2-0.8); MONOCYTES % 6.4 % (4.4-11.3); NEUTROPHILS # (AUTO) 3.1 (2.1-6.9); NEUTROPHILS % 66.4 % (38.7-80.0); PLATELET COUNT 251 x10e3/uL (140-360); RED BLOOD COUNT 4.33 x10e6/uL (3.6-5.1); RED CELL DISTRIBUTION WIDTH 17.6 % (11.7-14.4)
[2018-02-04 05:54] LABS: ANION GAP 14.9 mmol/L (8-16); BLOOD UREA NITROGEN 7 mg/dL (7-26); BUN/CREATININE RATIO 10 (6-25); CALCIUM 8.5 mg/dL (8.4-10.2); CARBON DIOXIDE 23 mmol/L (22-29); CHLORIDE 106 mmol/L (98-107); CREATININE, SERUM 0.69 mg/dL (0.57-1.11); EST GLOMERULAR FILTRATION RATE > 60 ML/MIN (60-); GLUCOSE 98 mg/dL (74-118); MAGNESIUM 1.9 MG/DL (1.3-2.1); POTASSIUM 3.9 mmol/L (3.5-5.1); SODIUM 140 mmol/L (136-145)
[2018-02-04] MEDS: SODIUM CHLORIDE 0.9% 1000ML 1,000 ML IV SCH ×2 (06:00→18:08)
[2018-02-04] MEDS: FERROUS SULFATE 325 MG TAB PO SCH ×2 (08:00→17:00)
[2018-02-04] MEDS: ASCORBIC ACID 500 MG TAB PO SCH ×2 (09:00→17:00)
[2018-02-04] MEDS: OYST-CAL-D 500MG TABLET PO SCH ×2 (09:00→17:00)
[2018-02-04] MEDS: ASPIRIN 81 MG ENTERIC COATED PO SCH (09:00)
[2018-02-04 09:04] VITALS: BP 121/67
[2018-02-04] MEDS: PANTOPRAZOLE 40 MG 10ML VIAL IV SCH (09:12)
[2018-02-04] MEDS: CEFTRIAXONE SOD 1 GM VIAL IV SCH ×2 (09:13→20:45)
[2018-02-04] MEDS: LISINOPRIL 20 MG TAB PO SCH (09:13)
[2018-02-04] MEDS: HEPARIN 25,000U/0.45% NS 250ML 900 UNIT in SODIUM CHLORIDE 0.9% 250ML 0 ML IV SCH (09:15)
[2018-02-04 11:54] VITALS: BP 124/57
--- NOTE | 2018-02-04 14:46 | Progress Note ---
DATE: February 04, 2018 CARDIOLOGY PROGRESS NOTE: SUBJECTIVE: Had EGD done yesterday. Did not show any obvious source of bleeding. Pending colonoscopy today. No chest pain or shortness of breath at this time. OBJECTIVE VITAL SIGNS: Temperature 97.0, pulse 73, respiratory rate 20, blood pressure 124/57, satting 93% on room air. GENERAL: Obese white female, in no acute distress. CARDIOVASCULAR: Regular rate and rhythm. No murmurs, rubs or gallops. Palpable carotid pulses. Palpable radial pulses. LUNGS: Clear to auscultation bilaterally. ABDOMEN: Soft, nontender, nondistended. Obese. NEURO AND PSYCH: Alert and oriented to person, place, and time. Normal affect. CARDIOVASCULAR MEDICATIONS: Reviewed. IMAGING DATA: Reviewed. TELEMETRY DATA: Reviewed. Normal sinus rhythm. LABORATORY DATA: Reviewed. ASSESSMENT 1. Unstable angina. 2. Iron deficiency anemia with history of peptic ulcer disease. 3. Hypertension. 4. Hyperlipidemia. PLAN: Patient needs coronary angiography. Possible PCI prior to discharge. However, given her iron deficiency anemia, currently undergoing GI evaluation before she is cleared for dual antiplatelet therapy. We will await GI to finish their workup. Tentatively plan for cardiac catheterization tomorrow after her colonoscopy today. Thank you for this consult. Continue optimal medical therapy while awaiting cardiac catheterization. Job#: [id number] ROCIO
[2018-02-04 15:58] VITALS: BP 117/53
[2018-02-04] MEDS ORDERED: HYOSCYAMINE SULFATE 0.5 MG/ML INJ ONE (17:27)
[2018-02-04] MEDS ORDERED: LIDOCAINE HCL 2% LOCAL INJ 5 ML SDV VIAL INJ ONE (17:31)
[2018-02-04] MEDS ORDERED: MIDAZOLAM HCL 2 MG/2 ML VIAL ONE (17:44)
[2018-02-04 20:00] VITALS: BP 131/73
[2018-02-04] MEDS: SIMVASTATIN 40 MG TAB PO SCH (20:45)
--- NOTE | 2018-02-04 22:08 | Operative Report ---
DATE OF PROCEDURE: February 04, 2018 PROCEDURE PERFORMED: Colonoscopy and a polypectomy note. REFERRING PHYSICIAN: Dr. Hector Bonilla INDICATIONS FOR PROCEDURE: Anemia, iron deficiency. Findings on EGD did not explain patient's anemia. MEDICATION: Patient was done under MAC. Please see anesthesiologist note. PROCEDURE IN DETAIL: With the patient in left lateral decubitus position, flexible fiberoptic Olympus colonoscope was inserted into the rectum with ease and advanced all the way to the cecum. Diverticular disease was noted throughout. One polyp was hot biopsied from the cecum, 1 polyp was snared from the transverse colon, 1 polyp was snared from the descending colon, and 1 polyp was hot biopsied from the rectum. The scope was then retroflexed into the distal rectum and small internal hemorrhoids were noted, none of which was actively bleeding. The scope was then straightened out. It was subsequently withdrawn. Patient tolerated the procedure well. IMPRESSION: 1. Pandiverticulosis. 2. Cecal polyp, hot biopsied. 3. Transverse colon polyp, snared. 4. Descending colon polyp, snared. 5. Rectal polyp, hot biopsied. 6. Internal hemorrhoids, none actively bleeding. PLAN: Follow up histology. Initiate cardiac diet. Patient will need a small bowel series to complete workup. She is cleared to proceed with cardiac cath. Job#: [id number] cc:HECTOR BONILLA MD
[2018-02-05] VITALS (16 sets, daily range): BP systolic 122–185; BP diastolic 61–85
[2018-02-05] MEDS: SODIUM CHLORIDE 0.9% 1000ML 1,000 ML IV SCH ×3 (02:00→22:55)
[2018-02-05] MEDS: NITROGLYCERIN 2% OINT 1 GM PKT TOP SCH ×4 (06:00→18:00)
[2018-02-05 06:02] LABS: BASOPHILS % 0.4 % (0.0-1.0); EOSINOPHILS # (AUTO) 0.1 (0.0-0.4); EOSINOPHILS % 2.5 % (0.0-6.0); HEMATOCRIT 32.7 % (34.2-44.1); HEMOGLOBIN 9.3 g/dL (12.0-16.0); LYMPHOCYTES # (AUTO) 1.1 (1.0-3.2); LYMPHOCYTES % 23.4 % (18.0-39.1); MEAN CORPUSCULAR HEMOGLOBIN 21.1 pg (28-32); MEAN CORPUSCULAR HGB CONC 28.4 g/dL (31-35); MEAN CORPUSCULAR VOLUME 74.1 fL (81-99); MONOCYTES # (AUTO) 0.3 (0.2-0.8); NEUTROPHILS # (AUTO) 3.1 (2.1-6.9); NEUTROPHILS % 66.5 % (38.7-80.0); PLATELET COUNT 265 x10e3/uL (140-360); RED BLOOD COUNT 4.41 x10e6/uL (3.6-5.1); RED CELL DISTRIBUTION WIDTH 18.3 % (11.7-14.4)
[2018-02-05 06:22] LABS: ANION GAP 12.5 mmol/L (8-16); BLOOD UREA NITROGEN 10 mg/dL (7-26); BUN/CREATININE RATIO 15 (6-25); CALCIUM 8.4 mg/dL (8.4-10.2); CARBON DIOXIDE 24 mmol/L (22-29); CHLORIDE 107 mmol/L (98-107); CREATININE, SERUM 0.68 mg/dL (0.57-1.11); EST GLOMERULAR FILTRATION RATE > 60 ML/MIN (60-); GLUCOSE 113 mg/dL (74-118); MAGNESIUM 2.2 MG/DL (1.3-2.1); POTASSIUM 3.5 mmol/L (3.5-5.1); SODIUM 140 mmol/L (136-145)
[2018-02-05] MEDS: CEFTRIAXONE SOD 1 GM VIAL IV SCH ×2 (08:00→22:55)
[2018-02-05] MEDS: FERROUS SULFATE 325 MG TAB PO SCH ×2 (08:00→17:00)
[2018-02-05] MEDS: LISINOPRIL 20 MG TAB PO SCH (09:00)
[2018-02-05] MEDS: ASPIRIN 81 MG ENTERIC COATED PO SCH (09:00)
[2018-02-05] MEDS: ASCORBIC ACID 500 MG TAB PO SCH ×2 (09:00→17:00)
[2018-02-05] MEDS: OYST-CAL-D 500MG TABLET PO SCH ×2 (09:00→17:00)
[2018-02-05] MEDS: PANTOPRAZOLE 40 MG 10ML VIAL IV SCH ×2 (09:00→17:00)
[2018-02-05] MEDS: HEPARIN 25,000U/0.45% NS 250ML 900 UNIT in SODIUM CHLORIDE 0.9% 250ML 0 ML IV SCH (09:15)
[2018-02-05] MEDS ORDERED: VERAPAMIL HCL 2.5 MG/ML 2 ML VIAL ONE (17:34)
[2018-02-05] MEDS ORDERED: MIDAZOLAM HCL 2 MG/2 ML VIAL ONE ×2 (17:34→18:33)
[2018-02-05] MEDS ORDERED: FENTANYL CITRATE/PF 100MCG/2 ML INJ ONE (17:34)
[2018-02-05] MEDS ORDERED: HEPARIN SOD (PORCINE) 1000 UNIT/ML 30ML ONE (17:34)
[2018-02-05] MEDS ORDERED: SODIUM CHLORIDE 0.9% 1000ML 1,000 ML ONE (17:35)
[2018-02-05] MEDS ORDERED: LIDOCAINE HCL 1% LOCAL INJ 20 ML VIAL ONE (17:35)
[2018-02-05] MEDS ORDERED: IOPAMIDOL 370 MG/ML 200 ML INFUS..BTL INJ ONE ×2 (17:35→18:35)
[2018-02-05] MEDS ORDERED: HEPARIN SOD/SOD CHLORIDE 2,000 ML ONE (17:35)
[2018-02-05] MEDS ORDERED: NITROGLYCERIN/D5W 200 MCG/ML 250 ML ONE (17:35)
[2018-02-05] MEDS ORDERED: ASPIRIN 325 MG TAB ONE (18:31)
[2018-02-05] MEDS ORDERED: CLOPIDOGREL BISULFATE 75 MG TAB ONE (18:31)
[2018-02-05] MEDS: SIMVASTATIN 40 MG TAB PO SCH (22:55)
[2018-02-05] MEDS: ISOSORBIDE MONONITRATE 30 MG TAB CR PO SCH (23:00)
[2018-02-06] VITALS: BP 185/78
[2018-02-06] MEDS ORDERED: CYANOCOBALAMIN INJ 1,000 MCG/ML VIAL IM ONE (02:15)
[2018-02-06 04:00] VITALS: BP 143/63
[2018-02-06] MEDS: NITROGLYCERIN 2% OINT 1 GM PKT TOP SCH ×2 (06:00)
[2018-02-06 06:35] LABS: BASOPHILS % 0.6 % (0.0-1.0); EOSINOPHILS # (AUTO) 0.1 (0.0-0.4); EOSINOPHILS % 2.2 % (0.0-6.0); HEMATOCRIT 32.2 % (34.2-44.1); HEMOGLOBIN 9.2 g/dL (12.0-16.0); LYMPHOCYTES # (AUTO) 1.1 (1.0-3.2); LYMPHOCYTES % 21.9 % (18.0-39.1); MEAN CORPUSCULAR HEMOGLOBIN 21.6 pg (28-32); MEAN CORPUSCULAR HGB CONC 28.6 g/dL (31-35); MEAN CORPUSCULAR VOLUME 75.6 fL (81-99); MONOCYTES # (AUTO) 0.3 (0.2-0.8); MONOCYTES % 6.5 % (4.4-11.3); NEUTROPHILS # (AUTO) 3.5 (2.1-6.9); NEUTROPHILS % 68.6 % (38.7-80.0); PLATELET COUNT 270 x10e3/uL (140-360); RED BLOOD COUNT 4.26 x10e6/uL (3.6-5.1); RED CELL DISTRIBUTION WIDTH 19.2 % (11.7-14.4)
[2018-02-06 06:53] LABS: ANION GAP 14.2 mmol/L (8-16); BLOOD UREA NITROGEN 9 mg/dL (7-26); BUN/CREATININE RATIO 14 (6-25); CALCIUM 8.4 mg/dL (8.4-10.2); CARBON DIOXIDE 20 mmol/L (22-29); CHLORIDE 110 mmol/L (98-107); CREATININE, SERUM 0.64 mg/dL (0.57-1.11); EST GLOMERULAR FILTRATION RATE > 60 ML/MIN (60-); GLUCOSE 111 mg/dL (74-118); MAGNESIUM 2.1 MG/DL (1.3-2.1); POTASSIUM 4.2 mmol/L (3.5-5.1); SODIUM 140 mmol/L (136-145)
[2018-02-06] MEDS ORDERED: Isosorbide Mononitrate PO (07:52)
[2018-02-06] MEDS ORDERED: FERROUS SULFAT325 MG PO (07:52)
[2018-02-06] MEDS ORDERED: ASPIRIN EC81 MG PO (07:52)
[2018-02-06] MEDS ORDERED: SIMVASTATIN40 MG PO (07:52)
[2018-02-06] MEDS ORDERED: ASCORBIC ACID500 MG PO (07:52)
[2018-02-06] MEDS ORDERED: LISINOPRIL20 MG PO (07:52)
[2018-02-06] MEDS ORDERED: FUROSEMIDE20 MG PO (07:52)
[2018-02-06] MEDS ORDERED: NITROSTAT0.4 MG SL (08:08)
[2018-02-06] MEDS ORDERED: HYDROCODONE/APAP 5MG-325MG TAB PO PRN (08:15)
[2018-02-06 08:21] VITALS: BP 173/72
[2018-02-06] MEDS: PANTOPRAZOLE 40 MG 10ML VIAL IV SCH (08:31)
[2018-02-06] MEDS: OYST-CAL-D 500MG TABLET PO SCH (08:32)
[2018-02-06] MEDS: ISOSORBIDE MONONITRATE 30 MG TAB CR PO SCH (08:32)
[2018-02-06] MEDS: ASPIRIN 81 MG ENTERIC COATED PO SCH (08:32)
[2018-02-06] MEDS: LISINOPRIL 20 MG TAB PO SCH (08:32)
[2018-02-06] MEDS: ASCORBIC ACID 500 MG TAB PO SCH (08:32)
[2018-02-06] MEDS: CEFTRIAXONE SOD 1 GM VIAL IV SCH (08:33)
[2018-02-06] MEDS: FERROUS SULFATE 325 MG TAB PO SCH (08:33)
[2018-02-06] MEDS: SODIUM CHLORIDE 0.9% 1000ML 1,000 ML IV SCH (08:33)
[2018-02-06] MEDS ORDERED: FUROSEMIDE 20 MG TAB PO SCH (09:00)
[2018-02-06] MEDS ORDERED: CYANOCOBALAMIN INJ 1,000 MCG/ML VIAL IM SCH (09:00)
[2018-02-06 12:00] VITALS: BP 125/68
--- NOTE | 2018-02-06 21:13 | Progress Note ---
DATE: February 05, 2018 CARDIOLOGY PROGRESS NOTE: SUBJECTIVE: No major events overnight. Planned angiography today. Colonoscopy yesterday was unremarkable. OBJECTIVE VITAL SIGNS: Afebrile. Blood pressure 134/83, heart rate 76, satting 95% on nasal cannula. GENERAL: Obese white female, in no acute distress. CARDIOVASCULAR: Regular rate and rhythm. No murmurs, rubs or gallops. Palpable carotid pulses. Palpable radial pulses. LUNGS: Clear to auscultation bilaterally. No respiratory distress. ABDOMEN: Soft, nontender, and nondistended. No masses. NEURO AND PSYCH: Alert and oriented to person, place, and time. Normal affect. LABORATORY DATA: Reviewed. INPATIENT MEDICATIONS: Reviewed. IMAGING DATA: Reviewed. ASSESSMENT AND PLAN 1. Typical chest pain with positive stress test with inferior ischemia. 2. Iron deficiency anemia. 3. Hypertension. 4. Hyperlipidemia. 5. Morbid obesity. Patient has been cleared from GI point of view to receive dual antiplatelet therapy if required. We will proceed with coronary angiography today with possible PCI. Discussed the risks and benefits with the patient. Continue medical therapy and optimal risk factor control for now. Thank you for this consult. We will continue to follow. Job#: [id number] ROCIO
--- NOTE | 2018-02-07 09:05 | Discharge Summary ---
ADMISSION DIAGNOSES 1. Chest pain. 2. Hypertension. 3. Gastroesophageal reflux disease. 4. Morbid obesity. 5. Anemia. 6. Elevated D-dimer. DISCHARGE DIAGNOSES 1. Chest pain. 2. Hypertension. 3. Gastroesophageal reflux disease. 4. Morbid obesity. 5. Anemia. 6. Elevated D-dimer. 7. Large hiatal hernia. 8. Gastritis. 9. Gastric polyps. 10. Colon polyps. 11. Pink diverticulosis. 12. Rectal polyp. 13. Hemorrhoids, rule out gastrointestinal bleed. 14. Hypocalcemia. HISTORY: Patient has a history of hypertension, GERD with gastric ulcers, anemia, and anxiety. Patient's only surgical history is uterus ablation. FAMILY HISTORY: Patient's mom had cancer. Patient's grandfather and sister had a stroke and patient's dad had heart disease. SOCIAL HISTORY: Patient admits to occasional alcohol use. She denies tobacco and illicit drug use. HOSPITAL COURSE: This 57-year-old female complains of symptoms of chest pain described as sharp that radiates to bilateral jaw, right greater than left and back. The pain began while getting ready for work yesterday morning and has been intermittent over the last 24 hours. Pain improved with water and worsened with exertion. Patient complains of associated shortness of breath, diaphoresis, and dizziness. On admission, patient's D-dimer was elevated at 0.88. CTA was done, which was negative. Hemoglobin was 7.9. Patient was ordered 2 PRBCs and GI consulted. Stool for blood was negative. Troponins were negative x3. EKG showed normal sinus. Echo was done that showed an EF of 50%-55%. A stress test was done on February 02, 2018 that showed a large area of inferior ischemia and an EF of 71%. Patient then went for an EGD and colonoscopy because cardiology wanted GI clearance prior to doing the heart cath. On EGD, patient had large a hiatal hernia, gastritis, and gastric polyps with no signs of bleeding. Patient then had a colonoscopy that showed colon polyps, rectal polyps, pink diverticulosis, and hemorrhoids with some bleeding. Patient was cleared by GI for a heart cath. Patient had a right wrist heart cath with no . Per GI and cardiology, patient can be discharged home. Per cardiology, she will be discharged with simvastatin, lisinopril, Imdur, and Lasix. She will also be sent home with iron, vitamin C, and aspirin daily. She will follow up with Dr. Pulido and Dr. Shah as discussed. Patient and understand discharge instructions and agreed to plan. On the day of discharge, vital signs stable and patient is afebrile. Dictated by: Jodie Tanner NP Job#: [id number] TATO
[2018-02-09 06:16] LABS: ENDOMYSIAL ANTIBODIES, IGA Negative (Negative)
== END 2018-02-06 11:59 | disposition home health service (06) | DRG 286 ==
LOC: ER 09:30 → ERHOLD 15:19 → MED/SURG 22:13 → OBSVTOIN 02-03 13:34
PROVIDERS: ADMIT Internal Medicine; ATTEND Internal Medicine
PROC: 30233N1 Transfusion of Nonautologous Red Blood Cells into Peripheral Vein, Percutaneous Approach (ICD-10-PCS; 2018-02-02)
PROC: 0DBL8ZX Excision of Transverse Colon, Via Natural or Artificial Opening Endoscopic, Diagnostic (ICD-10-PCS; 2018-02-03)
PROC: 0DBP8ZX Excision of Rectum, Via Natural or Artificial Opening Endoscopic, Diagnostic (ICD-10-PCS; 2018-02-03)
PROC: 0DBM8ZX Excision of Descending Colon, Via Natural or Artificial Opening Endoscopic, Diagnostic (ICD-10-PCS; 2018-02-03)
PROC: 0DBH8ZX Excision of Cecum, Via Natural or Artificial Opening Endoscopic, Diagnostic (ICD-10-PCS; principal; 2018-02-03 16:27)
PROC: 0DB38ZX Excision of Lower Esophagus, Via Natural or Artificial Opening Endoscopic, Diagnostic (ICD-10-PCS; 2018-02-04)
PROC: 0DB78ZX Excision of Stomach, Pylorus, Via Natural or Artificial Opening Endoscopic, Diagnostic (ICD-10-PCS; 2018-02-04)
PROC: 4A023N7 Measurement of Cardiac Sampling and Pressure, Left Heart, Percutaneous Approach (ICD-10-PCS; 2018-02-05)
PROC: B2051ZZ Plain Radiography of Left Heart using Low Osmolar Contrast (ICD-10-PCS; 2018-02-05)
PROC: B2011ZZ Plain Radiography of Multiple Coronary Arteries using Low Osmolar Contrast (ICD-10-PCS; 2018-02-05)
PROC: B4101ZZ Fluoroscopy of Abdominal Aorta using Low Osmolar Contrast (ICD-10-PCS; 2018-02-05)
DX: I25.110 Atherosclerotic heart disease of native coronary artery with unstable angina pectoris (principal); K57.31 Diverticulosis of large intestine without perforation or abscess with bleeding; Z68.41 Body mass index [BMI] 40.0-44.9, adult; N39.0 Urinary tract infection, site not specified; H81.09 Meniere's disease, unspecified ear; E78.5 Hyperlipidemia, unspecified; K21.9 Gastro-esophageal reflux disease without esophagitis; K44.9 Diaphragmatic hernia without obstruction or gangrene; K29.70 Gastritis, unspecified, without bleeding; K63.5 Polyp of colon; K62.1 Rectal polyp; E83.51 Hypocalcemia; E66.01 Morbid (severe) obesity due to excess calories; K64.8 Other hemorrhoids; D50.9 Iron deficiency anemia, unspecified; Z87.11 Personal history of peptic ulcer disease; F41.9 Anxiety disorder, unspecified
CPT/HCPCS: 36415; 43239; 45384; 45385; 71046; 71275; 78452; 80048; 80053; 80061; 81001; 82270; 82550; 82553; 82607; 82728; 82746; 82784; 83516; 83540; 83735; 83880; 84100; 84466; 84484; 85025; 85045; 85347; 85379; 85610; 85730; 86256; 86850; 86900; 86920; 87086; 88305; 88312; 93005; 93017; 93306; 93458; 96376; 99284; A9502; C1874; G0378; J0696; J1644; J1980; J2001; J2250; J2270; J2405; J3420; J7030; J7050; P9016; Q9967

== ENCOUNTER → 2018-02-26 | Outpatient (CLI) | payer BC ==
[~2018-02-26] MED LIST changes: +ASPIRIN EC81 MG PO; +FERROUS SULFAT325 MG PO; +FUROSEMIDE20 MG PO; +Isosorbide Mononitrate PO; +LISINOPRIL20 MG PO; +NITROSTAT0.4 MG SL; +SIMVASTATIN40 MG PO
--- NOTE | 2018-02-26 10:48 | Diagnostic Imaging Report ---
This report includes an Addendum and supersedes previous reports for this exam. PROCEDURE: SMALL BOWEL SERIES COMPARISON: None. INDICATIONS: ANEMIA FINDINGS: The patient was given barium to drink and sequential images of the abdomen were obtained through 2 hours. Spot images of the small bowel and terminal ileum were then obtained. There is a large hiatal hernia. Small bowel motility and caliber are normal. There is no evidence of mass or mucosal abnormality. The terminal ileum is normal. CONCLUSION: 1. Large hiatal hernia. 2. Otherwise unremarkable small bowel follow-through. Gilbert De La Garza D.O. Dictated by: Gilbert De La Garza D.O. on 02/26/2018 at 10:56 Electronically approved by: Gilbert De La Garza D.O. on 02/26/2018 at 10:56 ADDENDUM: Fluoroscopy time: 1.1 minute Total dose: 69.28 mGy Gilbert De La Garza D.O. Dictated by: Gilbert De La Garza D.O. on 02/26/2018 at 10:59 Electronically approved by: Gilbert De La Garza D.O. on 02/26/2018 at 10:59
== END ==
LOC: DX 07:27
PROVIDERS: ATTEND Internal Medicine Gastroenterology
DX: D64.9 Anemia, unspecified (principal)
CPT/HCPCS: 74250